=== PATIENT | male | born 1935 | race Caucasian/White ===

== ENCOUNTER 2017-02-10 03:32 | Emergency (ER) | payer MEDICAID, OTHER ==
[~2017-02-10] VITALS: Ht 175.3 cm; Wt 71.2 kg
[~2017-02-10 03:32] MED LIST: ADVAIR 100-501 EACH INH; BENAZEPRIL HCL10 MG PO; GLUCOPHAGE500 MG PO; PROAIR HFA8.5 GM INH; SIMVASTATIN40 MG PO; VICODIN 5-5001 EACH PO
[2017-02-10 04:09] VITALS: BP 170/97
[2017-02-10] MEDS ORDERED: DIPHENHYDRAMINE25 M1 ORAL (04:12)
[2017-02-10] MEDS ORDERED: PREDNISONE20 MG ORAL (04:12)
[2017-02-10 04:19] VITALS: BP 170/97
--- NOTE | 2017-02-10 06:01 | Emergency Room Report ---
History of Present Illness General Chief Complaint: Skin Rash/Abscess Source: Patient Present Illness HPI 81-year-old male presents ED for evaluation of rash. States he's had this rash for nearly one year now. Has been to multiple doctors and states that the rash is not gotten better. Has even been to [facility] and was prescribed cream which did not help. States the rash is very itchy, denies any pain. Denies any fevers or chills. No known food or drug allergies. States that it's been all over his body but is currently only on his face and neck. No other aggravating or relieving factors. Denies any other associated symptoms Allergies: Coded Allergies: No Known Allergies (Unverified , 02/10/17) Patient History Past Medical History: DM, HTN, COPD Past Surgical History: none Pertinent Family History: none Social History: Denies: alcohol use, drug use, smoking Immunizations: UTD Reviewed Nursing Documentation: PMH: Agreed, PSxH: Agreed Nursing Documentation-PMH Past Medical History: No History, Except For Hx Hypertension: Yes Hx COPD: Yes Hx Diabetes: Yes - borderline dm2 Review of Systems All Other Systems: negative except mentioned in HPI Physical Exam Vital Signs Date Time Temp Pulse Resp B/P Pulse Ox O2 Delivery O2 Flow Rate FiO2 02/10/17 03:42 97.5 108 16 192/97 90 Room Air Sp02 EP Interpretation: reviewed, normal General Appearance: no apparent distress, alert, GCS 15, non-toxic Head: normocephalic, atraumatic Eyes: bilateral eye PERRL, bilateral eye normal inspection ENT: normal ENT inspection Neck: normal inspection Respiratory: normal inspection Cardiovascular #1: normal inspection Gastrointestinal: normal inspection Rectal: deferred Genitourinary: no CVA tenderness Musculoskeletal: normal inspection Neurologic: alert, oriented x3, responsive, motor strength/tone normal, sensory intact, speech normal Psychiatric: normal inspection Skin: rash - erythematous patches on face. nonerythematous base Lymphatic: normal inspection Medical Decision Making Diagnostic Impression: Primary Impression: Rash and other nonspecific skin eruption ER Course Hospital Course 81-year-old male presents to ED with rash to face Differential diagnoses include: Cellulitis, dermatitis, insect bite, abscess Clinical course Patient placed on stretcher. After initial history, physical exam reveals an elderly male in no acute distress. On exam there are multiple macular circular patches to the face. Nonerythematous base. Smooth. Blanching. Diagnosis - rash stable and discharged to home with prescription for Prednisone, Benedryl. Instructed to followup with PMD. Instructed return to ED if symptoms recur or worsen Last Vital Signs Date Time Temp Pulse Resp B/P Pulse Ox O2 Delivery O2 Flow Rate FiO2 02/10/17 04:19 97.5 98 16 170/97 96 Room Air Status: improved Disposition: HOME, SELF-CARE Condition: Stable Scripts Diphenhydramine Hcl* (DIPHENHYDRAMINE HCL*) 25 Mg Capsule 25 MG ORAL Q6H Y for Itching, #30 CAP 0 Refills Prov: AMINA MAHAJAN M.D. 02/10/17 Prednisone* (PREDNISONE*) 20 Mg Tablet 40 MG ORAL DAILY, #10 TAB Prov: AMINA MAHAJAN M.D. 02/10/17 Referrals: [facility],REFERRING (PCP) Patient Instructions: AMINA Blunt M.D. Feb 10, 2017 06:01
== END 2017-02-10 04:20 | disposition home or self-care (01) ==
LOC: EMR 04:00
DX: R21 Rash and other nonspecific skin eruption (principal); I10 Essential (primary) hypertension; J44.9 Chronic obstructive pulmonary disease, unspecified; E11.9 Type 2 diabetes mellitus without complications
CPT/HCPCS: 99284

== ENCOUNTER 2017-12-02 11:31 | Emergency (ER) | payer MEDICARE, OTHER ==
[~2017-12-02] VITALS: Ht 175.3 cm; Wt 68.9 kg
[~2017-12-02 11:31] MED LIST changes: +DIPHENHYDRAMINE25 M1 ORAL; +PREDNISONE20 MG ORAL
[2017-12-02 11:40] VITALS: BP 131/88
--- NOTE | 2017-12-02 12:30 | Emergency Room Report ---
History of Present Illness General Chief Complaint: Abdominal Pain Source: Patient Present Illness HPI Patient states has a history of a right inguinal hernia. He states he's had this in the 80s. He states he has had a cough recently and has noticed some soreness in the area. He states it is most painful when he has a bowel movement. He denies pain at this time. He states he would like to get it "checked out." He denies fever or chills. He denies nausea or vomiting. He is having normal bowel movements daily. He denies dysuria or hematuria. He has no other complaints. Allergies: Coded Allergies: No Known Allergies (Unverified , 02/10/17) Patient History Past Medical History: see triage record, DM, HTN, COPD Social History: Reports: smoking, Denies: alcohol use, drug use Reviewed Nursing Documentation: PMH: Agreed, PSxH: Agreed Nursing Documentation-PMH Past Medical History: No History, Except For Hx Hypertension: Yes Hx COPD: Yes Hx Diabetes: Yes - borderline dm2 Review of Systems All Other Systems: negative except mentioned in HPI Physical Exam Vital Signs Date Time Temp Pulse Resp B/P (MAP) Pulse Ox O2 Delivery O2 Flow Rate FiO2 12/02/17 11:40 98.1 67 18 131/88 92 Room Air Sp02 EP Interpretation: reviewed, normal General Appearance: no apparent distress, alert, GCS 15, non-toxic Head: normocephalic, atraumatic Eyes: bilateral eye normal inspection, bilateral eye PERRL ENT: hearing grossly normal, normal pharynx, no angioedema, normal voice Neck: full range of motion, supple/symm/no masses Respiratory: chest non-tender, lungs clear, normal breath sounds, speaking full sentences Cardiovascular #1: regular rate, rhythm, no edema Gastrointestinal: normal bowel sounds, non tender, soft, non-distended, no guarding, no rebound, hernia - R. inguinal, easily reducible, non-tender. No erythema. Rectal: deferred Musculoskeletal: back normal, gait/station normal, normal range of motion, non- tender Neurologic: alert, oriented x3, responsive, motor strength/tone normal, sensory intact, speech normal Psychiatric: judgement/insight normal, memory normal, mood/affect normal, no suicidal/homicidal ideation Skin: normal color, no rash, warm/dry, well hydrated Medical Decision Making Diagnostic Impression: Primary Impression: Inguinal hernia ER Course This patient presents with a reducible inguinal hernia. The patient was concerned as it was hurting more often lately. I had offered the patient a CT of the abdomen and pelvis, however, he declined. He states that he underwent a CT of the chest with the [facility] within the last month. He also had a full blood work done at the NH. He states he just wanted me to evaluate it. The hernia is reducible and nontender. He has no vomiting and is having normal bowel movements. I do not feel that there is any emergency medical condition. It does not appear incarcerated or strangulated. It is a non-surgical abdomen. He 's had it for many years. I will put him on a bowel regimen to prevent constipation and having to bear down. He is instructed to followup with the NH. Laboratory Tests Test 12/02/17 12:20 Urine Color Pale yellow Urine Appearance Clear Urine pH 5 (4.5-8.0) Urine Specific [place] 1.010 (1.005-1.035) Urine Protein Negative (NEGATIVE) Urine Glucose (UA) Negative (NEGATIVE) Urine Ketones Negative (NEGATIVE) Urine Occult Blood Negative (NEGATIVE) Urine Nitrite Negative (NEGATIVE) Urine Bilirubin Negative (NEGATIVE) Urine Urobilinogen Normal MG/DL (0.0-1.0) Urine Leukocyte Esterase Negative (NEGATIVE) Last Vital Signs Date Time Temp Pulse Resp B/P (MAP) Pulse Ox O2 Delivery O2 Flow Rate FiO2 12/02/17 11:40 98.1 67 18 131/88 92 Room Air Status: improved Disposition: HOME, SELF-CARE Condition: Improved Scripts Polyethylene Glycol 3350* (MIRALAX*) 17 Gm Powd.pack 17 GM ORAL DAILY, #30 PACKET Prov: JUNI YA D.O. 12/02/17 Docusate Sodium* (COLACE*) 100 Mg Capsule 100 MG ORAL TWICE A DAY, #60 CAP Prov: JUNI YAOElayne 12/02/17 JUNI YA D.O. Dec 02, 2017 12:30
[2017-12-02 12:38] LABS: APPEARANCE,URINE CLEAR; BILIRUBIN, URINE NEGATIVE (NEGATIVE); COLOR,URINE PALE YELLOW; GLUCOSE, URINE (UA) NEGATIVE (NEGATIVE); KETONES,URINE NEGATIVE (NEGATIVE); LEUKOCYTE ESTERASE ,URINE NEGATIVE (NEGATIVE); NITRITE,URINE NEGATIVE (NEGATIVE); PH,URINE 5 (4.5-8.0); PROTEIN,URINE NEGATIVE (NEGATIVE); UROBILINOGEN,URINE NORMAL MG/DL (0.0-1.0)
[2017-12-02] MEDS ORDERED: COLACE100 MG ORAL ×2 (12:38→13:30)
[2017-12-02] MEDS ORDERED: MIRALAX17 G2 ORAL ×2 (12:38→13:30)
[2017-12-02 13:05] VITALS: BP 116/67
== END 2017-12-02 14:00 | disposition home or self-care (01) ==
LOC: EMR 13:15
DX: K40.90 Unilateral inguinal hernia, without obstruction or gangrene, not specified as recurrent (principal); I10 Essential (primary) hypertension; J44.9 Chronic obstructive pulmonary disease, unspecified
CPT/HCPCS: 81003; 99283

== ENCOUNTER 2019-03-13 16:00 | Inpatient (IN) | payer MEDICARE, OTHER ==
[~2019-03-13] VITALS: Ht 175.3 cm; Wt 68.9 kg
[~2019-03-13 16:00] MED LIST changes: +COLACE100 MG ORAL; +MIRALAX17 G2 ORAL
--- NOTE | 2019-03-13 16:00 | NUR ---
ED Nurse Note: Pt BIBA from home due to complaints of abdominal pain x 1 hour. Pt denies vomiting or diarrhea but is complaining of nausea. Pt is arting the pain an 8/10. Non radiating. No distention in the abdomen noted. Pt noted to have right sided inguinal hernia. Hx of COPD. Upon arrival to ED, noted to be sating at 88% on RA. Pt placed on O2 2lpm via nasal cannula and is now 90%. Pt is A + O x4. Ambulatory. Skin warm to touch.
[2019-03-13 16:02] VITALS: BP 161/92
--- NOTE | 2019-03-13 16:20 | NUR ---
ED Nurse Note: Blood has been collected and sent to lab.
--- NOTE | 2019-03-13 16:24 | Emergency Room Report ---
History of Present Illness General Chief Complaint: Abdominal Pain Source: Patient Present Illness HPI Patient presents with complaints of vomiting nausea abdominal discomfort and a hard mass in the right inguinal region patient has had previous hernia however he reports that the area has not become hard to touch He feels that something is blocked Denies any chest pain or shortness of breath denies any dysuria or frequency patient reports a small amount of bowel movement this morning And none since then Allergies: Coded Allergies: No Known Allergies (Unverified , 02/10/17) Patient History Past Medical History: see triage record Pertinent Family History: none Reviewed Nursing Documentation: PMH: Agreed; PSxH: Agreed Nursing Documentation-PMH Past Medical History: No History, Except For Hx Hypertension: Yes Hx COPD: Yes Hx Diabetes: Yes Review of Systems All Other Systems: negative except mentioned in HPI Physical Exam Vital Signs Date Time Temp Pulse Resp B/P (MAP) Pulse Ox O2 Delivery O2 Flow Rate FiO2 03/13/19 15:50 98.8 95 20 140/72 98 Room Air 03/13/19 16:02 2.0 90 Sp02 EP Interpretation: reviewed, normal General Appearance: mild distress - Nauseated vomiting Head: normocephalic, atraumatic Eyes: bilateral eye PERRL, bilateral eye EOMI ENT: normal pharynx Neck: supple, thyroid normal Respiratory: lungs clear, no retraction, no accessory muscle use Cardiovascular #1: regular rate, rhythm Gastrointestinal: soft, other - Right-sided inguinal hernia, palpable indicative of incarceration Genitourinary: other - As above Musculoskeletal: normal inspection, back normal Neurologic: alert, oriented x3, responsive Skin: other - As above Procedures Critical Care Time Critical Care Time 50 minutes for emergent findings multiple re-evaluations, contact with specialist multiple re-evaluations not including any procedural time Medical Decision Making Diagnostic Impression: Primary Impression: Incarcerated hernia Additional Impression: SBO (small bowel obstruction) ER Course With the history exam and presentation, multiple differentials considered, including but not limited to appendicitis, gastritis, cholecystitis, diverticulitis Given the patient's clinical history and examination there is significant concern for right-sided incarcerated hernia Surgery is contacted emergently house detective contacted for initiation of the operating room Patient was consented in the emergency room doctor Frederick also in the emergency room And patient admitted to the OR for emergency procedure Labs Test 03/13/19 16:10 03/13/19 16:35 White Blood Count 12.4 K/UL (4.8-10.8) Red Blood Count 4.86 M/UL (4.70-6.10) Hemoglobin 15.2 G/DL (14.2-18.0) Hematocrit 46.3 % (42.0-52.0) Mean Corpuscular Volume 95 FL (80-99) Mean Corpuscular Hemoglobin 31.4 PG (27.0-31.0) Mean Corpuscular Hemoglobin Concent 33.0 G/DL (32.0-36.0) Red Cell Distribution Width 13.0 % (11.6-14.8) Platelet Count 166 K/UL (150-450) Mean Platelet Volume 7.0 FL (6.5-10.1) Neutrophils (%) (Auto) 78.7 % (45.0-75.0) Lymphocytes (%) (Auto) 13.8 % (20.0-45.0) Monocytes (%) (Auto) 4.9 % (1.0-10.0) Eosinophils (%) (Auto) 1.9 % (0.0-3.0) Basophils (%) (Auto) 0.7 % (0.0-2.0) Sodium Level 137 MMOL/L (136-145) Potassium Level 4.1 MMOL/L (3.5-5.1) Chloride Level 101 MMOL/L (98-107) Carbon Dioxide Level 26 MMOL/L (21-32) Anion Gap 10 mmol/L (5-15) Blood Urea Nitrogen 18 mg/dL (7-18) Creatinine 1.5 MG/DL (0.55-1.30) Estimat Glomerular Filtration Rate mL/min (>60) Glucose Level 214 MG/DL (74-106) Calcium Level 9.0 MG/DL (8.5-10.1) Total Bilirubin 0.6 MG/DL (0.2-1.0) Aspartate Amino Transf (AST/SGOT) 23 U/L (15-37) Alanine Aminotransferase (ALT/SGPT) 22 U/L (12-78) Alkaline Phosphatase 73 U/L (46-116) Total Creatine Kinase 108 U/L (26-308) Creatine Kinase MB 1.5 NG/ML (0.0-3.6) Creatine Kinase MB Relative Index 1.3 Troponin I 0.000 ng/mL (0.000-0.056) Pro-B-Type Natriuretic Peptide 46 pg/mL (0-125) Total Protein 7.7 G/DL (6.4-8.2) Albumin 3.9 G/DL (3.4-5.0) Globulin 3.8 g/dL Albumin/Globulin Ratio 1.0 (1.0-2.7) Lipase 89 U/L (73-393) Prothrombin Time 10.4 SEC (9.30-11.50) Prothromb Time International Ratio 1.0 (0.9-1.1) Activated Partial Thromboplast Time 24 SEC (23-33) Rhythm Strip Diag. Results EP Interpretation: yes Rate: 70 Rhythm: NSR, no PVC's, no ectopy Chest X-Ray Diagnostic Results Chest X-Ray Diagnostic Results : Chest X-Ray Ordered: Yes # of Views/Limited/Complete: 1 View Indication: Other - Preop EP Interpretation: Yes Interpretation: no consolidation, no effusion, no pneumothorax Impression: No acute disease - COPD Electronically Signed by: Maria M Duke DO CT/MRI/US Diagnostic Results CT/MRI/US Diagnostic Results : Impression CT abdomen pelvis: Small bowel obstruction secondary to incarcerated right inguinal hernia Last Vital Signs Date Time Temp Pulse Resp B/P (MAP) Pulse Ox O2 Delivery O2 Flow Rate FiO2 03/13/19 16:02 98.5 103 25 161/92 90 Nasal Cannula 2.0 03/13/19 16:02 90 Status: unchanged Disposition: ADMITTED INPATIENT Condition: Critical Referrals: NON PHYSICIAN (PCP) Maria M Duke DO Mar 13, 2019 16:24
[2019-03-13 16:32] LABS: BASOPHILS % (AUTO) 0.7 % (0.0-2.0); EOSINOPHILS % (AUTO) 1.9 % (0.0-3.0); HEMATOCRIT 46.3 % (42.0-52.0); HEMOGLOBIN 15.2 G/DL (14.2-18.0); LYMPHOCYTES % (AUTO) 13.8 % (20.0-45.0); MEAN CORPUSCULAR VOLUME 95 FL (80-99); MONOCYTES % (AUTO) 4.9 % (1.0-10.0); NEUTROPHILS % (AUTO) 78.7 % (45.0-75.0); PLATELET COUNT 166 K/UL (150-450); RED BLOOD COUNT 4.86 M/UL (4.70-6.10); WHITE BLOOD COUNT 12.4 K/UL (4.8-10.8)
[2019-03-13 16:43] LABS: ANION GAP 10 mmol/L (5-15); BLOOD UREA NITROGEN 18 mg/dL (7-18); CARBON DIOXIDE 26 MMOL/L (21-32); CHLORIDE 101 MMOL/L (98-107); CREATININE 1.5 MG/DL (0.55-1.30); POTASSIUM 4.1 MMOL/L (3.5-5.1); SODIUM 137 MMOL/L (136-145)
[2019-03-13] MEDS ORDERED: Morphine Sulfate 4mg/ml Inj (IV USE ONLY) IVP ONE (16:45)
--- NOTE | 2019-03-13 16:53 | NUR ---
ED Nurse Note: Pt went down to CT.
[2019-03-13 16:58] LABS: ALANINE AMINOTRANSFERASE 22 U/L (12-78); ALBUMIN 3.9 G/DL (3.4-5.0); ALKALINE PHOSPHATASE 73 U/L (46-116); ASPARTATE AMINO TRANSFERASE 23 U/L (15-37); BILIRUBIN,TOTAL 0.6 MG/DL (0.2-1.0); CKMB 1.5 NG/ML (0.0-3.6); CREATINE KINASE 108 U/L (26-308)
--- NOTE | 2019-03-13 17:04 | Pre-Procedure Note/Attestation ---
Pre-Procedure Note/Attestation Complete Prior to Procedure Planned Procedure: right Procedure Narrative: Right inguinal herniorrhaphy and release of incarceration Indications for Procedure Pre-Operative Diagnosis: Incarcerated Right Inguinal Hernia Attestation I attest that I discussed the nature of the procedure; its benefits; risks and complications; and alternatives (and the risks and benefits of such alternatives ), prior to the procedure, with the patient (or the patient's legal community service representative). I attest that, if there was a reasonable possibility of needing a blood transfusion, the patient (or the patient's legal community service representative) was given the [facility] standardized written summary, pursuant to the Alexy Martine Blood Safety Act ([place] Health and Safety Code # 1645, as amended). I attest that I re-evaluated the patient just prior to the surgery and that there has been no change in the patient's H&P, except as documented below: Cathi Frederick MD Mar 13, 2019 17:04
--- NOTE | 2019-03-13 17:11 | NUR ---
ED Nurse Note: Pt back from CT
[2019-03-13] MEDS ORDERED: Zemuron 50mg/5ml Inj IV ONE (17:24)
--- NOTE | 2019-03-13 17:26 | NUR ---
ED Nurse Note: Pt signed surgery consent and belongings list created. Pt has been dressed down.
[2019-03-13] MEDS ORDERED: fentaNYL 100 mcg/2 mL IV ONE (17:33)
[2019-03-13] MEDS ORDERED: Midazolam 2mg/2ml Inj ONE (17:33)
[2019-03-13] MEDS ORDERED: LR 1000ml 1,000 ML IVLG SCH (17:38)
--- NOTE | 2019-03-13 17:38 | NUR ---
ED Nurse Note: Pt transferred to OR unit. No acute distress noted. Left ER w/ all belongings. Signed Consent and belongings list given to OR transport staff.
--- NOTE | 2019-03-13 17:43 | Anethesia Preoperative Eval ---
Anesthesia Pre-op PMH/ROS General Date of Evaluation: Mar 13, 2019 Anesthesiologist: Lisa ASA Score: ASA 3 Mallampati Score Class I : Soft palate, uvula, fauces, pillars visible Class II: Soft palate, uvula, fauces visible Class III: Soft palate, base of uvula visible Class IV: Only hard plate visible Mallampati Classification: Class II Surgeon: Chas Diagnosis: Inguinal Hernia Surgical Procedure: Repair Inguinal Hernia Anesthesia History: none Family History: no anesthesia problems Allergies: Coded Allergies: No Known Allergies (Unverified , 02/10/17) Medications: see eMAR Patient NPO?: Yes Past Medical History Cardiovascular: Reports: HTN Pulmonary: Reports: COPD Endocrine: Reports: DM Anesthesia Pre-op Phys. Exam Physician Exam Last Vital Signs Date Time Temp Pulse Resp B/P (MAP) Pulse Ox O2 Delivery O2 Flow Rate FiO2 03/13/19 17:10 98.5 03/13/19 16:02 103 25 161/92 90 Nasal Cannula 2.0 03/13/19 16:02 90 Anesthesia Pre-op A/P Labs Hematology Test 03/13/19 16:10 White Blood Count 12.4 K/UL (4.8-10.8) H Red Blood Count 4.86 M/UL (4.70-6.10) Hemoglobin 15.2 G/DL (14.2-18.0) Hematocrit 46.3 % (42.0-52.0) Mean Corpuscular Volume 95 FL (80-99) Mean Corpuscular Hemoglobin 31.4 PG (27.0-31.0) H Mean Corpuscular Hemoglobin Concent 33.0 G/DL (32.0-36.0) Red Cell Distribution Width 13.0 % (11.6-14.8) Platelet Count 166 K/UL (150-450) Mean Platelet Volume 7.0 FL (6.5-10.1) Neutrophils (%) (Auto) 78.7 % (45.0-75.0) H Lymphocytes (%) (Auto) 13.8 % (20.0-45.0) L Monocytes (%) (Auto) 4.9 % (1.0-10.0) Eosinophils (%) (Auto) 1.9 % (0.0-3.0) Basophils (%) (Auto) 0.7 % (0.0-2.0) Coagulation Test 03/13/19 16:35 Prothrombin Time 10.4 SEC (9.30-11.50) Prothromb Time International Ratio 1.0 (0.9-1.1) Activated Partial Thromboplast Time 24 SEC (23-33) Chemistry Test 03/13/19 16:10 Sodium Level 137 MMOL/L (136-145) Potassium Level 4.1 MMOL/L (3.5-5.1) Chloride Level 101 MMOL/L (98-107) Carbon Dioxide Level 26 MMOL/L (21-32) Anion Gap 10 mmol/L (5-15) Blood Urea Nitrogen 18 mg/dL (7-18) Creatinine 1.5 MG/DL (0.55-1.30) H Estimat Glomerular Filtration Rate mL/min (>60) Glucose Level 214 MG/DL (74-106) H Calcium Level 9.0 MG/DL (8.5-10.1) Total Bilirubin 0.6 MG/DL (0.2-1.0) Aspartate Amino Transf (AST/SGOT) 23 U/L (15-37) Alanine Aminotransferase (ALT/SGPT) 22 U/L (12-78) Alkaline Phosphatase 73 U/L (46-116) Total Creatine Kinase 108 U/L (26-308) Creatine Kinase MB 1.5 NG/ML (0.0-3.6) Creatine Kinase MB Relative Index 1.3 Troponin I 0.000 ng/mL (0.000-0.056) Pro-B-Type Natriuretic Peptide 46 pg/mL (0-125) Total Protein 7.7 G/DL (6.4-8.2) Albumin 3.9 G/DL (3.4-5.0) Globulin 3.8 g/dL Albumin/Globulin Ratio 1.0 (1.0-2.7) Lipase 89 U/L (73-393) Rufino Gonzalez MD Mar 13, 2019 17:43
[2019-03-13] MEDS ORDERED: LORazepam Inj 2mg/ml 1ml IV PRN (17:45)
[2019-03-13] MEDS ORDERED: DiphenhydrAMINE 50mg/ml Inj IVP PRN (17:45)
[2019-03-13] MEDS ORDERED: fentaNYL 100 mcg/2 mL IV PRN (17:45)
[2019-03-13] MEDS ORDERED: Labetalol 5mg/ml 20ml vial IV PRN (17:45)
[2019-03-13] MEDS ORDERED: Metoclopramide 10mg/2ml Inj IVP PRN (17:45)
[2019-03-13] MEDS ORDERED: Midazolam 2mg/2ml Inj IVP PRN (17:45)
[2019-03-13] MEDS ORDERED: HYDROcodone/Acetamin 7.5/325 tab ORAL PRN (17:45)
[2019-03-13] MEDS ORDERED: Ketorolac 30mg Inj IV PRN ×2 (17:45)
[2019-03-13] MEDS ORDERED: oxyCODONE HCL/Acetaminophen 5/325mg ORAL PRN (17:45)
[2019-03-13] MEDS ORDERED: Atropine Sulfate 0.4mg/ml inj IVP PRN (17:45)
[2019-03-13] MEDS ORDERED: Propofol 200mg/20ml IV ONE (17:45)
[2019-03-13] MEDS ORDERED: Sodium Chloride 10ml vial INJ ONE (17:45)
[2019-03-13] MEDS ORDERED: Hydromorphone 0.5mg/0.5ml inj IVP PRN (17:45)
[2019-03-13] MEDS ORDERED: Lidocaine 1% MPF 10mg/ml 5ml ONE (17:45)
[2019-03-13] MEDS ORDERED: Meperidine 50mg/ml Inj(FOR RIGORS ONLY) IVP PRN (17:45)
[2019-03-13] MEDS ORDERED: HYDROcodone/Acetamin 5/325 tab ORAL PRN (17:45)
[2019-03-13] MEDS ORDERED: Bacitracin 50000 Units Vial ONE (17:47)
[2019-03-13] MEDS ORDERED: Bupivacaine 0.25% Inj 30ml INJ ONE (17:47)
[2019-03-13] MEDS ORDERED: Bupivacaine w/Epi 0.25% 30ml Vial INJ ONE (17:47)
--- NOTE | 2019-03-13 18:00 | Pre-op HX & Phy Repo 2 SIG ---
DATE OF ADMISSION: 03/13/2019 REQUESTING PHYSICIAN: Maria M Duke D.O. from the emergency room. REASON FOR CONSULTATION: Pain and swelling of the right groin. HISTORY OF PRESENT ILLNESS: This is an 83-year-old male, who presented to emergency room complaining of pain in the right groin for about two to three hours. He stated that he has had right inguinal hernia for about 20 years, but it has been reducible, but a few hours ago, the hernia has protruded. It has been irreducible, dense, tender with pain, and he has been nauseated. He had a bowel movement prior to the start of the pain. He denies any fever, dysuria, or frequency. PAST MEDICAL HISTORY: He denies allergies, cardiac or renal diseases. He has a history of COPD, diabetes, and hypertension. PAST SURGICAL HISTORY: None. MEDICATIONS: Please see the medicine reconciliation form. SOCIAL HISTORY: The patient is an 83-year-old male, single without children, retired. He claims that he quit smoking 10 years ago and quit drinking a few months ago. REVIEW OF SYSTEMS: He complains of once and two times nocturia and shortness of breath and exertion. PHYSICAL EXAMINATION: GENERAL: The patient appeared to be a well-developed, well-nourished, 83-year-old male, lying on the gurney complaining of pain in the right groin. HEAD: Normocephalic and atraumatic. Eyes, pupils are equal, round, and reactive to light. Mouth is clear. He has upper denture. NECK: There is no palpable thyromegaly or adenopathy. CHEST: He has a barrel chest, but the chest is clear in auscultation and percussion. HEART: Heart sounds are distant, but there is no gallop or murmur. S1 and S2 are within normal limits. ABDOMEN: Soft, flat, and nontender. There is no palpable organomegaly. Bowel sounds are present. GENITALIA: He has a normal uncircumcised penis. His testicles are normal and atrophic. He has irreducible and very tender right inguinal hernia, which extends to the upper part of the spermatic cord. EXTREMITIES: Within normal limits. LABORATORY AND DIAGNOSTIC DATA: CBC has shown a WBC of 12,400 with mild left shift. Chemistry has shown blood glucose of 214 with creatinine of 1.5 and BUN of 18. ASSESSMENT: Strangulated right inguinal hernia. PLAN: The patient requires an emergency right inguinal herniorrhaphy with the release of the strangulation. The risk and benefits have been explained to him. He understood and granted consent. Cathi Frederick M.D. DR: Elisa JOB#: [id number] CC:
--- NOTE | 2019-03-13 18:08 | General Surgery Progress Note ---
General Surgery-Progress Note Subjective Symptoms: improved Additional Comments hernia reduced spontaneously patient refuses surgery Objective Last 24 Hour Vital Signs Date Time Temp Pulse Resp B/P (MAP) Pulse Ox O2 Delivery O2 Flow Rate FiO2 03/13/19 17:39 98.1 64 19 107/69 93 Nasal Cannula 2.0 03/13/19 17:10 98.5 03/13/19 16:02 98.5 103 25 161/92 90 Nasal Cannula 2.0 03/13/19 16:02 103 25 Nasal Cannula 2.0 90 03/13/19 15:50 98.8 95 20 140/72 98 Room Air Abdomen: other - right inguinal hernia has reduced Laboratory Tests Test 03/13/19 16:10 03/13/19 16:35 White Blood Count 12.4 K/UL (4.8-10.8) H Red Blood Count 4.86 M/UL (4.70-6.10) Hemoglobin 15.2 G/DL (14.2-18.0) Hematocrit 46.3 % (42.0-52.0) Mean Corpuscular Volume 95 FL (80-99) Mean Corpuscular Hemoglobin 31.4 PG (27.0-31.0) H Mean Corpuscular Hemoglobin Concent 33.0 G/DL (32.0-36.0) Red Cell Distribution Width 13.0 % (11.6-14.8) Platelet Count 166 K/UL (150-450) Mean Platelet Volume 7.0 FL (6.5-10.1) Neutrophils (%) (Auto) 78.7 % (45.0-75.0) H Lymphocytes (%) (Auto) 13.8 % (20.0-45.0) L Monocytes (%) (Auto) 4.9 % (1.0-10.0) Eosinophils (%) (Auto) 1.9 % (0.0-3.0) Basophils (%) (Auto) 0.7 % (0.0-2.0) Sodium Level 137 MMOL/L (136-145) Potassium Level 4.1 MMOL/L (3.5-5.1) Chloride Level 101 MMOL/L (98-107) Carbon Dioxide Level 26 MMOL/L (21-32) Anion Gap 10 mmol/L (5-15) Blood Urea Nitrogen 18 mg/dL (7-18) Creatinine 1.5 MG/DL (0.55-1.30) H Estimat Glomerular Filtration Rate mL/min (>60) Glucose Level 214 MG/DL (74-106) H Calcium Level 9.0 MG/DL (8.5-10.1) Total Bilirubin 0.6 MG/DL (0.2-1.0) Aspartate Amino Transf (AST/SGOT) 23 U/L (15-37) Alanine Aminotransferase (ALT/SGPT) 22 U/L (12-78) Alkaline Phosphatase 73 U/L (46-116) Total Creatine Kinase 108 U/L (26-308) Creatine Kinase MB 1.5 NG/ML (0.0-3.6) Creatine Kinase MB Relative Index 1.3 Troponin I 0.000 ng/mL (0.000-0.056) Pro-B-Type Natriuretic Peptide 46 pg/mL (0-125) Total Protein 7.7 G/DL (6.4-8.2) Albumin 3.9 G/DL (3.4-5.0) Globulin 3.8 g/dL Albumin/Globulin Ratio 1.0 (1.0-2.7) Lipase 89 U/L (73-393) Prothrombin Time 10.4 SEC (9.30-11.50) Prothromb Time International Ratio 1.0 (0.9-1.1) Activated Partial Thromboplast Time 24 SEC (23-33) Assessment Additional Comments S/P incarcerated right inguinal hernia Plan Additional Comments patient refuses surgery. he can be discharged home Cathi Frederick MD Mar 13, 2019 18:08
--- NOTE | 2019-03-13 18:13 | NUR ---
ED Nurse Note: Tried giving report, RN unavailable. Will try again.
--- NOTE | 2019-03-13 18:24 | NUR ---
ED Nurse Note: Gave telephone report to BRANDEE Roland.
--- NOTE | 2019-03-13 18:29 | NUR ---
ED Nurse Note: Pt was transferred to the OR unit but upon arrival, pt denied having surgery. Pt was transported back to ER, gave telephone report to BRANDEE Roland from [facility] unit and pt was transferred. No acute distress noted. Left ER w/ all belongings.
[2019-03-13 18:51] VITALS: BP 129/98
--- NOTE | 2019-03-13 18:51 | NUR ---
NURSE NOTES: Report received from Cinthia from ED, patient transferred up via robert, NADIRA, no distress noted, patient belongings reviewed, patient has over $700 [place] and requests that he hold on to it, patient refuses to use the safe, bed is locked and in lowest position, call light within reach, will continue to monitor.
--- NOTE | 2019-03-13 19:33 | NUR ---
HAND-OFF: Report given to Eagle IRVIN.
[2019-03-13 20:00] VITALS: BP 122/67
--- NOTE | 2019-03-13 20:30 | NUR ---
NURSE NOTES: Patient noted request AMA. Patient is awake, alert and verbally responsive. No complaint of pain at the moment. Patient is aware regarding his condition. Primary MD made aware. Charge nurse made aware. All belongings accounted for. Arm band removed and IV site removed.
--- NOTE | 2019-03-14 08:39 | Diagnostic Imaging Report ---
Indication: Abdominal pain Technique: Spiral acquisitions obtained through the abdomen and pelvis. No oral contrast utilized, per emergency room physician request No IV contrast utilized, per referring physician request.. Multiplanar reconstructions were generated. Total dose length product 544.41 mGycm. CTDIvol(s) 11.42 mGy. Dose reduction achieved using automated exposure control Comparison: None Findings: There is a direct right inguinal hernia. This contains 2 separate segments of small bowel. This results in obstruction of both segments, as small bowel loops entering and exiting the proximal segment are dilated and fluid filled, whereas the small bowel exiting the distal segment is collapsed. There is minimal infiltration of the mesenteric fat within the hernia sac. No small bowel bowel wall thickening. The corner of the anterior bladder is also herniated into the defect. The appendix is normal. There is a moderate amount of retained fecal material. There is colonic diverticulosis. No evidence of diverticulitis. No free or loculated intraperitoneal gas or fluid is evident. The distal esophagus, stomach, duodenum are unremarkable. The lack of IV contrast limits assessment of the solid organs. The liver, gallbladder, bile ducts, pancreas, spleen, adrenals are unremarkable. The kidneys demonstrate bilateral cysts. The prostate is enlarged. Lung bases demonstrate hyperinflation and bullous changes. The bones demonstrate degenerative spondylosis changes. Impression: Direct right inguinal hernia containing 2 separate loops of small bowel, appearing to obstruct mostly entering loops and resulting in small bowel obstruction. The hernia also contains a corner of the bladder Minimal infiltration of the mesenteric fat within the hernia sac; could indicate a component of strangulation. This is doubtful Evidence of constipation Colonic diverticulosis. No evidence of diverticulitis Prostatomegaly Pulmonary hyperinflation and bullous changes Other findings as noted, including degenerative spondylosis, bilateral renal cysts This agrees with the preliminary interpretation provided overnight by [employer] teleradiology service. The CT scanner at [facility] is accredited by the [employer] and the scans are performed using protocols designed to limit radiation exposure to as low as reasonably achievable to attain images of sufficient resolution adequate for diagnostic evaluation.
--- NOTE | 2019-03-14 10:24 | Diagnostic Imaging Report ---
Indication: Chest pain Technique: One view of the chest Comparison: For 19/01/2010 Findings: There are bullous changes of the upper lobes, particularly on the right. Lungs and pleural spaces are otherwise clear. The heart size is normal. There are severe degenerative changes of the left shoulder. Impression: No acute process Evidence of bullous COPD Other findings as noted
--- NOTE | 2019-03-14 19:57 | Cardiology Report ---
APPROVED REPORT EKG Measurement Heart [id number] Normal sinus rhythm with sinus arrhythmia Left axis deviation Right bundle branch block Septal infarct, age undetermined Abnormal ECG
--- NOTE | 2019-03-15 12:57 | Discharge Summary ---
Discharge Summary Discharge Summary _ DATE OF ADMISSION: 03/13/2019 DATE OF DISCHARGE: 03/13/2019 Patient left AGAINST MEDICAL ADVICE REASON FOR ADMISSION: 83 years old male with past medical history of COPD, diabetes mellitus, hypertension, presented to emergency room complaining of the right groin pain for 2-3 hours. Patient reported that he had a right inguinal hernia for about 20 years, but it was reducible. Few hours ago the hernia protruded and appeared to be irreducible. Patient reported to be in pain. Patient was nauseated. Patient had bowel movement prior. He denied fever, dysuria, and frequency. Upon evaluation noted that right inguinal hernia was irreducible and very tender, extending to the upper part of the spermatic cord. Laboratory workup revealed leukocytosis WBC 12.4 with mild left shift. Blood glucose 214. Creatinine 1.5, BUN 18. Chest x-ray revealed no acute process, but showed evidence of bullous COPD. CT of the abdomen and pelvis revealed direct right inguinal hernia, containing 2 separate loops of small bowel , appear to obstruct mostly entering loops and resulting in small bowel obstruction. General surgery consulted, who seen and evaluated patient. Patient required emergency right inguinal herniorrhaphy with release of the strangulation as per surgeon . Patient signed consent for surgery. CONSULTANTS: surgery [facility] COURSE: Patient admitted. Patient was kept n.p.o. and started on the IV fluids. Patient required emergency right inguinal herniorrhaphy with release of the strangulation. Pain management was addressed. Prior to surgery, hernia reduced spontaneously, and patient subsequently refused surgery. Surgeon cleared patient for discharge. Patient decline to wait for the primary care provider and decided to leave AGAINST MEDICAL ADVICE. Pain was resolved, no further nausea The risks and consequences of signing AGAINST MEDICAL ADVICE were discussed with patient in detail. Patient verbalized understanding, nevertheless signed AMA form and left.. FINAL DIAGNOSES: Status post incarcerated right inguinal hernia Small bowel obstruction I have been assigned to dictate discharge summary for this account. I was not involved in the patient's management. Delfina Hansen NP Mar 15, 2019 12:57
== END 2019-03-13 20:30 | disposition left against medical advice (07) | DRG 395 ==
LOC: EDBD 16:00 → EMR 16:13 → EDBEDREQ 16:17 → SUR 17:05 → EDBEDREQ 17:18 → 4E 18:11
DX: K40.30 Unilateral inguinal hernia, with obstruction, without gangrene, not specified as recurrent (principal); J44.9 Chronic obstructive pulmonary disease, unspecified; I10 Essential (primary) hypertension; E11.9 Type 2 diabetes mellitus without complications; Z87.891 Personal history of nicotine dependence; Z53.29 Procedure and treatment not carried out because of patient's decision for other reasons
CPT/HCPCS: 36415; 71045; 74176; 80053; 82550; 82553; 83690; 83880; 84484; 85025; 85610; 85730; 86850; 86900; 86901; 93005; 96374; 96375; 99291; J2250; J2405

== ENCOUNTER 2019-03-15 06:36 | Inpatient (IN) | payer MEDICARE ==
[2019-03-15] VITALS (10 sets, daily range): BP systolic 95–123; BP diastolic 62–82
[~2019-03-15] VITALS: Ht 172.7 cm; Wt 72.1 kg
[2019-03-15] MEDS ORDERED: ASPIR-LOW81 MG ORAL (06:56)
[2019-03-15] MEDS ORDERED: ADVAIR 250-501 EACH INH (06:56)
[2019-03-15] MEDS ORDERED: SPIRIVA18 MCG INH (06:56)
[2019-03-15] MEDS ORDERED: LISINOPRIL5 MG ORAL (06:56)
--- NOTE | 2019-03-15 07:00 | NUR ---
ED Nurse Note: RECIEVED PT FROM HOME, HERE WITH C/O HAVING CONSTIPATION FOR PAST 5 DAYS, PT WAS ADMITTED TO HOSPITAL FOR HERNIA REPAIR SURGERY AND LEFT AMA 3 DAYS AGO, PT STATES HE WAS AFRAID, PT DENIES CP, SOB, FEVERS, DIARRHEA, OR ANY OTHER COMPLAINTS OR DISCOMFORTS, PT GOWNED AND BEING SEEN BY MD. PT CURRENTLY HAS NO PAIN.
--- NOTE | 2019-03-15 07:22 | Emergency Room Report ---
History of Present Illness General Chief Complaint: Pain Source: Patient Present Illness HPI This patient had presented here to the emergency department 2 days ago with right inguinal pain and vomiting. He was found to have an incarcerated inguinal hernia. He was admitted here to [facility] and then refused to undergo surgery secondary to fear of the surgical procedure. Also, his symptoms improved and the small bowel obstruction had resolved. The patient refused surgery and was discharged. He presents today stating that he has changed his mind and he is ready to undergo the right inguinal hernia repair. He denies nausea or vomiting. However, he has had no bowel movement since being discharged from the emergency department. He has minimal pain in the right inguinal region although there is still a large bulge there. He did have cereal this morning around 6 AM. He denies fever or chills. He has no other complaints. Allergies: Coded Allergies: No Known Allergies (Unverified , 02/10/17) Patient History Past Medical History: see triage record, DM, HTN, COPD, GERD, other - HLP Social History: Denies: smoking - Quit tobacco 9 years ago., alcohol use - Hx of ETOH use, quit 2 months ago, drug use Reviewed Nursing Documentation: PMH: Agreed; PSxH: Agreed Nursing Documentation-PMH Past Medical History: No History, Except For Hx Hypertension: Yes Hx COPD: Yes Hx Diabetes: Yes Review of Systems All Other Systems: negative except mentioned in HPI Physical Exam Vital Signs Date Time Temp Pulse Resp B/P (MAP) Pulse Ox O2 Delivery O2 Flow Rate FiO2 03/15/19 06:38 94 12 152/84 91 Room Air Sp02 EP Interpretation: reviewed, normal General Appearance: no apparent distress, alert, GCS 15, non-toxic Head: normocephalic, atraumatic Eyes: bilateral eye normal inspection, bilateral eye PERRL ENT: hearing grossly normal, normal pharynx, no angioedema, normal voice Neck: full range of motion, supple/symm/no masses Respiratory: chest non-tender, lungs clear, normal breath sounds, no respiratory distress, no retraction, no accessory muscle use, speaking full sentences Cardiovascular #1: regular rate, rhythm, no edema Gastrointestinal: normal bowel sounds, soft, non-distended, no guarding, no rebound, tenderness - TTP in the R. inguinal with palpable mass that is non- reducible. Rectal: deferred Musculoskeletal: back normal, gait/station normal, normal range of motion, non- tender Neurologic: alert, oriented x3, responsive, motor strength/tone normal, sensory intact, speech normal Psychiatric: judgement/insight normal, memory normal, mood/affect normal, no suicidal/homicidal ideation Skin: normal color, no rash, warm/dry, well hydrated Medical Decision Making Diagnostic Impression: Primary Impression: Incarcerated right inguinal hernia ER Course This patient has an incarcerated right inguinal hernia. This identified on physical exam. I'm unable to reduce this hernia. The patient otherwise appears well. I reviewed the CT from a day and a half ago and the patient had an incarcerated inguinal hernia with a small bowel instruction at that time. I did not feel that repeating the CT with had any further information. I discussed this case with the on-call surgeon Dr. Frederick and he will do surgery on this patient this afternoon around 4:56 PM. The patient will need to be nothing by mouth today throughout the day. The patient is admitted to the medical surgical floor for surgical reduction of his right inguinal hernia. Laboratory Tests Test 03/15/19 07:15 03/15/19 07:30 White Blood Count 8.4 K/UL (4.8-10.8) Red Blood Count 4.73 M/UL (4.70-6.10) Hemoglobin 15.3 G/DL (14.2-18.0) Hematocrit 45.5 % (42.0-52.0) Mean Corpuscular Volume 96 FL (80-99) Mean Corpuscular Hemoglobin 32.2 PG (27.0-31.0) H Mean Corpuscular Hemoglobin Concent 33.5 G/DL (32.0-36.0) Red Cell Distribution Width 13.1 % (11.6-14.8) Platelet Count 166 K/UL (150-450) Mean Platelet Volume 8.9 FL (6.5-10.1) Neutrophils (%) (Auto) 65.9 % (45.0-75.0) Lymphocytes (%) (Auto) 23.8 % (20.0-45.0) Monocytes (%) (Auto) 7.2 % (1.0-10.0) Eosinophils (%) (Auto) 2.3 % (0.0-3.0) Basophils (%) (Auto) 0.9 % (0.0-2.0) Prothrombin Time 10.4 SEC (9.30-11.50) Prothrombin Time INR 1.0 (0.9-1.1) PTT 27 SEC (23-33) Sodium Level 139 MMOL/L (136-145) Potassium Level 4.2 MMOL/L (3.5-5.1) Chloride Level 101 MMOL/L (98-107) Carbon Dioxide Level 29 MMOL/L (21-32) Anion Gap 9 mmol/L (5-15) Blood Urea Nitrogen 17 mg/dL (7-18) Creatinine 1.3 MG/DL (0.55-1.30) Estimate Glomerular Filtration Rate mL/min (>60) Glucose Level 128 MG/DL (74-106) H Calcium Level 8.8 MG/DL (8.5-10.1) Total Bilirubin 0.7 MG/DL (0.2-1.0) Aspartate Amino Transferase (AST) 21 U/L (15-37) Alanine Aminotransferase (ALT) 23 U/L (12-78) Alkaline Phosphatase 72 U/L (46-116) Total Protein 7.4 G/DL (6.4-8.2) Albumin 3.7 G/DL (3.4-5.0) Globulin 3.7 g/dL Albumin/Globulin Ratio 1.0 (1.0-2.7) Lactic Acid Level 0.90 mmol/L (0.4-2.0) Laboratory Tests Test 03/15/19 07:15 03/15/19 07:30 White Blood Count 8.4 K/UL (4.8-10.8) Red Blood Count 4.73 M/UL (4.70-6.10) Hemoglobin 15.3 G/DL (14.2-18.0) Hematocrit 45.5 % (42.0-52.0) Mean Corpuscular Volume 96 FL (80-99) Mean Corpuscular Hemoglobin 32.2 PG (27.0-31.0) H Mean Corpuscular Hemoglobin Concent 33.5 G/DL (32.0-36.0) Red Cell Distribution Width 13.1 % (11.6-14.8) Platelet Count 166 K/UL (150-450) Mean Platelet Volume 8.9 FL (6.5-10.1) Neutrophils (%) (Auto) 65.9 % (45.0-75.0) Lymphocytes (%) (Auto) 23.8 % (20.0-45.0) Monocytes (%) (Auto) 7.2 % (1.0-10.0) Eosinophils (%) (Auto) 2.3 % (0.0-3.0) Basophils (%) (Auto) 0.9 % (0.0-2.0) Prothrombin Time Pending Prothrombin Time INR Pending PTT Pending Sodium Level Pending Potassium Level Pending Chloride Level Pending Carbon Dioxide Level Pending Blood Urea Nitrogen Pending Creatinine Pending Estimate Glomerular Filtration Rate Pending Glucose Level Pending Calcium Level Pending Total Bilirubin Pending Aspartate Amino Transferase (AST) Pending Alanine Aminotransferase (ALT) Pending Alkaline Phosphatase Pending Total Protein Pending Albumin Pending Globulin Pending Lactic Acid Level Pending Last Vital Signs Date Time Temp Pulse Resp B/P (MAP) Pulse Ox O2 Delivery O2 Flow Rate FiO2 03/15/19 06:38 94 12 152/84 91 Room Air Disposition: ADMITTED INPATIENT Condition: Serious Sana Bender DO Mar 15, 2019 07:22
[2019-03-15 07:31] LABS: BASOPHILS % (AUTO) 0.9 % (0.0-2.0); EOSINOPHILS % (AUTO) 2.3 % (0.0-3.0); HEMATOCRIT 45.5 % (42.0-52.0); HEMOGLOBIN 15.3 G/DL (14.2-18.0); LYMPHOCYTES % (AUTO) 23.8 % (20.0-45.0); MEAN CORPUSCULAR VOLUME 96 FL (80-99); MONOCYTES % (AUTO) 7.2 % (1.0-10.0); NEUTROPHILS % (AUTO) 65.9 % (45.0-75.0); PLATELET COUNT 166 K/UL (150-450); RED BLOOD COUNT 4.73 M/UL (4.70-6.10); RED CELL DISTRIBUTION WIDTH 13.1 % (11.6-14.8); WHITE BLOOD COUNT 8.4 K/UL (4.8-10.8)
[2019-03-15 07:44] LABS: ANION GAP 9 mmol/L (5-15); BLOOD UREA NITROGEN 17 mg/dL (7-18); CALCIUM 8.8 MG/DL (8.5-10.1); CARBON DIOXIDE 29 MMOL/L (21-32); CHLORIDE 101 MMOL/L (98-107); CREATININE 1.3 MG/DL (0.55-1.30); POTASSIUM 4.2 MMOL/L (3.5-5.1); SODIUM 139 MMOL/L (136-145)
[2019-03-15 07:48] LABS: ALANINE AMINOTRANSFERASE 23 U/L (12-78); ALBUMIN 3.7 G/DL (3.4-5.0); ALKALINE PHOSPHATASE 72 U/L (46-116); ASPARTATE AMINO TRANSFERASE 21 U/L (15-37); BILIRUBIN,TOTAL 0.7 MG/DL (0.2-1.0)
--- NOTE | 2019-03-15 09:35 | NUR ---
ED Nurse Note: Called [facility] unit for pt transfer. RN not assigned to pt. Will call back for report shortly.
--- NOTE | 2019-03-15 09:51 | NUR ---
ED Nurse Note: Gave telephone report to BRANDEE Stone. Admission packet pending.
--- NOTE | 2019-03-15 10:11 | NUR ---
ED Nurse Note: Pt trasnferred up to medsurg unit. No acute distress noted. Left ER w/ all belongings.
--- NOTE | 2019-03-15 10:20 | NUR ---
NURSE NOTES: Received patient from ER,patient is alert and oriented X4,respiration unlabored,02 0n at 2L N/C.patient has personal belongings,patient has wallet with credit card and money,patient agree to have wallet placed in the Safe.Patient states no pain at this time.Call light within reach.
[2019-03-15] MEDS ORDERED: Morphine Sulfate 4mg/ml Inj (IV USE ONLY) IVP PRN (12:00)
--- NOTE | 2019-03-15 13:02 | NUR ---
RADIOLOGY DEPT., PATIENT REFUSED EXAM AT THIS TIME. PATIENT STATES CHEST X-RAY PERFORMED THURSDAY ON ADMISSIONS.WILLIAN
[2019-03-15] MEDS ORDERED: Albuterol 90mcg Inhaler 8gm INH PRN (13:30)
--- NOTE | 2019-03-15 14:15 | NUR ---
NURSE NOTES: Patient to OR via [facility].
[2019-03-15] MEDS ORDERED: Bupivacaine 0.25% Inj 30ml INJ ONE ×2 (14:46→16:04)
[2019-03-15] MEDS ORDERED: NeoSporin Gu Irrig 1ml Amp IRRIG ONE (14:46)
[2019-03-15] MEDS ORDERED: Bacitracin 50000 Units Vial ONE (14:46)
[2019-03-15] MEDS ORDERED: Glycopyrrolate 0.2mg/ml 1ml Vial ONE (15:00)
[2019-03-15] MEDS ORDERED: Sterile Water Irrig 1000ml IRRIG ONE (15:00)
[2019-03-15] MEDS ORDERED: Ketorolac 30mg Inj ONE (15:00)
[2019-03-15] MEDS ORDERED: NS Irrig 1000ml ONE (15:00)
[2019-03-15] MEDS ORDERED: Propofol 200mg/20ml IV ONE (15:00)
[2019-03-15] MEDS ORDERED: fentaNYL 100 mcg/2 mL IV ONE (15:29)
[2019-03-15] MEDS ORDERED: Zemuron 50mg/5ml Inj IV ONE (15:29)
[2019-03-15] MEDS ORDERED: Neostigmine 1mg/ml 10ml Inj ONE (15:29)
--- NOTE | 2019-03-15 15:36 | Pre-Procedure Note/Attestation ---
Pre-Procedure Note/Attestation Complete Prior to Procedure Planned Procedure: right Procedure Narrative: right inguinal herniorrhaphy with application of mesh Indications for Procedure Pre-Operative Diagnosis: incarcerated right inguinal hernia Attestation I attest that I discussed the nature of the procedure; its benefits; risks and complications; and alternatives (and the risks and benefits of such alternatives ), prior to the procedure, with the patient (or the patient's legal traffic workforce representative). I attest that, if there was a reasonable possibility of needing a blood transfusion, the patient (or the patient's legal traffic workforce representative) was given the [facility] standardized written summary, pursuant to the [place] Blood Safety Act ([place] Health and Safety Code # 1645, as amended). I attest that I re-evaluated the patient just prior to the surgery and that there has been no change in the patient's H&P, except as documented below: Cathi Frederick MD Mar 15, 2019 15:36
[2019-03-15] MEDS ORDERED: Hydromorphone 0.5mg/0.5ml inj IVP PRN (16:15)
[2019-03-15] MEDS ORDERED: LR 1000ml 1,000 ML IVLG SCH (16:15)
--- NOTE | 2019-03-15 16:15 | Anethesia Preoperative Eval ---
Anesthesia Pre-op PMH/ROS General Date of Evaluation: Mar 15, 2019 Time of Evaluation: 15:18 Anesthesiologist: Torrie ASA Score: ASA 3 Mallampati Score Class I : Soft palate, uvula, fauces, pillars visible Class II: Soft palate, uvula, fauces visible Class III: Soft palate, base of uvula visible Class IV: Only hard plate visible Mallampati Classification: Class II Surgeon: Otoniel Diagnosis: R injuinal herniar Surgical Procedure: R injuinal hernia repair Anesthesia History: none Social History: smoking - h/o Family History: no anesthesia problems Allergies: Coded Allergies: No Known Allergies (Unverified , 02/10/17) Medications: see eMAR Patient NPO?: Yes NPO Date: Mar 15, 2019 NPO Time: 0800 Past Medical History Cardiovascular: Reports: HTN - mild; Denies: CAD, HI, valve dz, arrhythmia, other Pulmonary: Reports: COPD - no SOB atrest; Denies: asthma, ALVINA, other Gastrointestinal/Genitourinary: Reports: GERD; Denies: CRI, ESRD, other Neurologic/Psychiatric: Denies: dementia, CVA, depression/anxiety, TIA, other Endocrine: Denies: DM, hypothyroidism, steroids, other HEENT: Denies: cataract (L), cataract (R), glaucoma, NATIVE (L), NATIVE (R), other Hematology/Immune: Denies: anemia, DVT, bleeding disorder, other Musculoskeletal/Integumentary: Reports: OA; Denies: RA, DJD, DDD, edema, other PMH Narrative: as above PSxH Narrative: see H&P Anesthesia Pre-op Phys. Exam Physician Exam Last Vital Signs Date Time Temp Pulse Resp B/P (MAP) Pulse Ox O2 Delivery O2 Flow Rate FiO2 03/15/19 14:04 Nasal Cannula 2.0 03/15/19 10:11 98.2 53 21 107/49 99 Constitutional: NAD Neurologic: CN 2-12 intact Cardiovascular: RRR, no M/R/G Respiratory: other - some wheezing bilaterally Gastrointestinal: S/NT/ND Airway Exam Mallampati Score: Class II MO: limited Neck: stiff ROM: limited Teeth: missing Dentures: upper, lower Anesthesia Pre-op A/P Labs Hematology Test 03/15/19 07:15 White Blood Count 8.4 K/UL (4.8-10.8) Red Blood Count 4.73 M/UL (4.70-6.10) Hemoglobin 15.3 G/DL (14.2-18.0) Hematocrit 45.5 % (42.0-52.0) Mean Corpuscular Volume 96 FL (80-99) Mean Corpuscular Hemoglobin 32.2 PG (27.0-31.0) H Mean Corpuscular Hemoglobin Concent 33.5 G/DL (32.0-36.0) Red Cell Distribution Width 13.1 % (11.6-14.8) Platelet Count 166 K/UL (150-450) Mean Platelet Volume 8.9 FL (6.5-10.1) Neutrophils (%) (Auto) 65.9 % (45.0-75.0) Lymphocytes (%) (Auto) 23.8 % (20.0-45.0) Monocytes (%) (Auto) 7.2 % (1.0-10.0) Eosinophils (%) (Auto) 2.3 % (0.0-3.0) Basophils (%) (Auto) 0.9 % (0.0-2.0) Coagulation Test 03/15/19 07:15 Prothrombin Time 10.4 SEC (9.30-11.50) Prothromb Time International Ratio 1.0 (0.9-1.1) Activated Partial Thromboplast Time 27 SEC (23-33) Chemistry Test 03/15/19 07:15 03/15/19 07:30 Sodium Level 139 MMOL/L (136-145) Potassium Level 4.2 MMOL/L (3.5-5.1) Chloride Level 101 MMOL/L (98-107) Carbon Dioxide Level 29 MMOL/L (21-32) Anion Gap 9 mmol/L (5-15) Blood Urea Nitrogen 17 mg/dL (7-18) Creatinine 1.3 MG/DL (0.55-1.30) Estimat Glomerular Filtration Rate mL/min (>60) Glucose Level 128 MG/DL (74-106) H Calcium Level 8.8 MG/DL (8.5-10.1) Total Bilirubin 0.7 MG/DL (0.2-1.0) Aspartate Amino Transf (AST/SGOT) 21 U/L (15-37) Alanine Aminotransferase (ALT/SGPT) 23 U/L (12-78) Alkaline Phosphatase 72 U/L (46-116) Total Protein 7.4 G/DL (6.4-8.2) Albumin 3.7 G/DL (3.4-5.0) Globulin 3.7 g/dL Albumin/Globulin Ratio 1.0 (1.0-2.7) Lactic Acid Level 0.90 mmol/L (0.4-2.0) Risk Assessment & Plan Assessment: ASA 3 Plan: GA with ETT Status Change Before Surgery: No Pre-Antibiotics Drug: Ancef 1gr. Given Within 1 Hr of Incision: Yes Time Given: 15:43 Eduar Brownlee MD Mar 15, 2019 16:15
[2019-03-15] MEDS ORDERED: NS Irrig 1000ml IRRIG ONE (16:26)
--- NOTE | 2019-03-15 16:57 | Brief Operative Note ---
Immediate Post Operative Note Operative Note Pre-op Diagnosis: incarcerated right inguinal hernia Post-op Diagnosis: same as pre-op Findings: consistent w/pre-op dx studies Surgeon: MD Duane Anesthesiology Medical Doctor: none Anesthesiologist: Dr. Brownlee Anesthesia: general Specimen: none Complications: none Condition: stable Fluids: per anesthesialogist Estimated Blood Loss: minimal Drains: none Implant(s) used?: Yes Cathi Frederick MD Mar 15, 2019 16:57
--- NOTE | 2019-03-15 16:59 | Discharge Instructions ---
Discharge Instructions Discharge Instructions Follow up with: my office one week Diet: diabetic calorie control Resume Normal Activity?: Yes Activity: as tolerated For Surgical Patients Clean and Dry: other - will be removed by surgeon May shower: Yes For Congestive Heart Failure Reminder Report to your physician any weight gain of 5 pounds or more in one week. Cathi Frederick MD Mar 15, 2019 16:59
--- NOTE | 2019-03-15 17:10 | Immediate Post-Op Evaluation ---
Immediate Post-Op Evalulation Immediate Post-Op Evalulation Procedure: R injuinal hernia repair Date of Evaluation: Mar 15, 2019 Time of Evaluation: 17:09 IV Fluids: 600 Blood Products: n0ne Estimated Blood Loss: min Urinary Output: none Blood Pressure Systolic: 109 Blood Pressure Diastolic: 52 Pulse Rate: 86 Respiratory Rate: 22 O2 Sat by Pulse Oximetry: 98 Temperature (Fahrenheit): 97.6 Pain Score (1-10): 2 Nausea: No Vomiting: No Complications none Patient Status: reacts, patent, extubated, none Hydration Status: adequate Eduar Bronwlee MD Mar 15, 2019 17:10
--- NOTE | 2019-03-15 17:45 | NUR ---
HAND-OFF: Report given to Razia IRVIN. Addendum: 03/15/19 at 2006 by ROGELIO KELLER RN RN hand off at 1944 to Razia IRVIN
--- NOTE | 2019-03-15 18:28 | NUR ---
NURSE NOTES: Receive patient from recovery,patient is alert and oriented,right groin dressing is clean dry pedal pulse strong.Ice pack to right groin noted .Bp111/68 hr,79,resp 18,temp 97.7,02 sat 0n 2L N/C 92-93% SCDs are on..No complaint of pain at this time.Call light within reach,bed alarm is on.Patient will start on clear liquids.
--- NOTE | 2019-03-15 19:30 | NUR ---
NURSE NOTES: Received a report from BRANDEE Stone. Pt is in stable condition. AAOX4. Able to make needs known. IV site is patent and intact. Dressing on the R inguinal in intact and dry. Bed in lowest position. Bed alarm is on. Call light within reach. Will continue to monitor.
[2019-03-15] MEDS: Wixela 100/50 Inhaler - 60 dose INH SCH (20:43)
--- NOTE | 2019-03-15 20:45 | Consultation ---
DATE OF CONSULTATION: 03/15/2019 PREOPERATIVE CONSULTATION CONSULTING PHYSICIAN: Cathi Frederick M.D. REQUESTING PHYSICIAN: ER physician. REASON FOR CONSULTATION: Irreducible hernia. HISTORY OF PRESENT ILLNESS: This is an 83-year-old male, who presented to emergency room complaining of swelling and irreducible hernia in his right groin. He stated that he has had a right inguinal hernia for over 20 years, but it has always been irreducible except for 2 days ago that the patient presented with incarcerated hernia. But the time that the patient was taken to the operating room, it reduces and he refused the surgery, but this time, it is again irreducible and he is requesting surgery. PAST MEDICAL HISTORY: He denies allergies and cardiac and renal diseases. He has a history of chronic obstructive pulmonary disease, diabetes, and hypertension. PAST SURGICAL HISTORY: None. MEDICATIONS: Please see the medicine reconciliation form. SOCIAL HISTORY: The patient is an 83-year-old male, who is single without any children. He is retired. He claims that he had stopped smoking 10 years ago. Recently, he has stopped drinking too. REVIEW OF SYSTEMS: He has nocturia and shortness of breath. PHYSICAL EXAMINATION: GENERAL: The patient appeared to be a well-developed and well-nourished 83-year-old male, lying on the gurney, complaining of irreducible hernia in the right groin. HEENT: Head is normocephalic and atraumatic. Eyes, pupils are equal, round, and reactive to light. Mouth is clear. He has an upper denture. NECK: There is no palpable thyromegaly or adenopathy. CHEST: Clear to auscultation and percussion. HEART: There is no gallop or murmur. S1 and S2 are within normal limits. ABDOMEN: Soft, flat, and nontender. The bowel sounds are present. There is no palpable organomegaly. GENITAL: He has a normal uncircumcised penis. His testicles are normal for his age. He has an irreducible right inguinal hernia, which extended below the external ring. EXTREMITIES: Within normal limits. ASSESSMENT: Incarcerated right inguinal hernia. PLAN: The patient requires right inguinal herniorrhaphy and release of the incarceration. The risks and benefits have been explained to him. He understood and granted the consent. Cathi Frederick M.D. DR: ROXANNE JOB#: [id number] CC:
--- NOTE | 2019-03-15 21:00 | Operative Note - Dictated ---
DATE OF OPERATION: 03/15/2019 PREOPERATIVE DIAGNOSIS: Incarcerated right inguinal hernia. POSTOPERATIVE DIAGNOSIS: Incarcerated right inguinal hernia. OPERATION: 1. Right inguinal herniorrhaphy with application of mesh. 2. Blockage of the nerves to the right groin for the postoperative pain control. COMPLICATIONS: None. SURGEON: Cathi Frederick M.D. BOILERMAKER PIPE FITTER: None. ANESTHESIA: General with endotracheal tube. ANESTHESIOLOGIST: Eduar Brownlee M.D. INDICATION: This is an 83-year-old male, who presented to emergency room complaining of irreducible lump at the right groin. The patient has had a right inguinal hernia for over 20 years, but he stated that it has always been reducible, but again this morning, it has been irreducible for which he presented to the emergency room. It should be noted that 2 days ago, he had an incarceration of this hernia, but by the time he was taken to the operating room, the hernia reduced and he refused the surgery. Physical examination showed an irreducible right inguinal hernia, which extended to below his external ring. DESCRIPTION OF PROCEDURE: The patient was placed supine on the operating table and after general anesthesia with endotracheal tube, the right groin was properly prepped and draped. A transverse right inguinal incision was given and was carried sharply through the subcutaneous tissue and Julien fascia. The aponeurosis of the external oblique was reached and was opened along the fibers. Exploration of the groin showed a direct inguinal hernia, which was protruding about 5 inches. This hernia was gradually dissected and isolated and then it was inverted with the help of the pursestring suture of #0 silk. After this, further exploration was performed, which failed to show an indirect hernia sac. A piece of Prolene mesh was selected and was tailored to size of the floor of the inguinal canal. This mesh was sutured in place with multiple interrupted suture of 2-0 Vicryl. The spermatic cord was passed through a small slit at the lower part of the mesh. During the dissection and repair, both ilioinguinal and iliohypogastric nerves were identified and preserved. After the application of the mesh, the incision was thoroughly irrigated with antibiotic solution and was infiltrated with 40 mL of Marcaine 0.25%. The nerves to the right groin were blocked with infiltration of 10 mL of Marcaine for the postoperative pain control. After the injection, the aponeurosis of the external oblique was approximated with running suture of 2-0 Vicryl. The subcutaneous tissue was approximated in two layers with 3-0 plain catgut and the skin incision was approximated with running subcuticular suture of 4-0 chromic. The patient tolerated the procedure very well and was transferred to recovery room in stable condition and extubated. The sponge and needle count correct. Estimated blood loss of 10 mL. Condition of the patient at the end of procedure is stable. Cathi Frederick M.D. DR: ROXANNE JOB#: [id number] CC:
[2019-03-15] MEDS: Pantoprazole Inj IVP SCH (21:05)
--- NOTE | 2019-03-15 22:45 | History and Physical Report ---
DATE OF ADMISSION: 03/15/2019 REASON FOR ADMISSION: Incarcerated right inguinal hernia. HISTORY: This is an 83-year-old male who is just admitted from the ER for the above-noted. The patient was discharged against medical advice and now returned. The patient is now admitted for the surgery and underwent a right inguinal hernia repair. The patient is otherwise stable and has been discharged to home. The patient's findings discussed and reviewed with the patient's emergency room physician. The patient has had some associated vomiting. The patient currently is comfortable overall without significant distress. PAST MEDICAL HISTORY: Notable for diabetes, hypertension, chronic obstructive pulmonary disease, and gastroesophageal reflux disease. MEDICATIONS: Reviewed. ALLERGIES: Reviewed. SOCIAL HISTORY: The patient was a smoker, who quit 9 years ago. History of alcohol use, quit two months ago. FAMILY HISTORY: Otherwise negative. REVIEW OF SYSTEMS: Otherwise negative. PHYSICAL EXAMINATION: GENERAL: A well-developed male, otherwise comfortable at present. No significant distress. VITAL SIGNS: Blood pressure 121/75, 96 sat on 3 liters, and pulse 76. The patient is afebrile. Respiratory rate 24. HEENT: Negative. Extraocular movements are grossly intact. NECK: Supple. LUNGS: Fairly clear and symmetric. CARDIAC: S1 and S2. Regular rate and rhythm without murmurs, rubs, or gallops. ABDOMEN: Slightly tender. Some bowel sounds. EXTREMITIES: No cyanosis, clubbing, or edema. NEUROLOGIC: Grossly nonfocal. LABORATORY DATA: Lab data reviewed, otherwise fairly negative. Electrolytes negative. Blood sugar is 228. CBC essentially negative. IMPRESSION: Incarcerated hernia status post repair, diabetes, hypertension, chronic obstructive pulmonary disease, and gastroesophageal reflux disease. RECOMMENDATIONS: Supportive care. The patient is cleared for discharge per Surgery. We will assist with disposition. The patient to follow up with surgery for further care and management and monitor wound for infection and we recommend further as needed. Dereck Pop M.D. DR: LATRICE JOB#: [id number] CC:
[2019-03-16] VITALS: BP 100/60
[2019-03-16 04:00] VITALS: BP 106/60
--- NOTE | 2019-03-16 06:53 | NUR ---
HAND-OFF: Report given to BRANDEE Levine.
--- NOTE | 2019-03-16 07:00 | NUR ---
NURSE NOTES: RN received pt in stable condition awake in bed. No s/s of acute distress or SOB. Surgical incision bandage intact, asymptomatic. Pt reports no pain. Will continue plan of care.
[2019-03-16 08:00] VITALS: BP 117/71
[2019-03-16] MEDS: Wixela 100/50 Inhaler - 60 dose INH SCH (08:31)
[2019-03-16] MEDS: Pantoprazole Inj IVP SCH (08:39)
--- NOTE | 2019-03-16 08:45 | 48 Hour Post Anesthesia Eval ---
Post Anesthesia Evaluation Procedure: R injuinal hernia repair Date of Evaluation: Mar 16, 2019 Time of Evaluation: 06:39 Blood Pressure Systolic: 106 0: 60 Pulse Rate: 64 Respiratory Rate: 20 Temperature (Fahrenheit): 98.2 O2 Sat by Pulse Oximetry: 96 Airway: patent Nausea: No Vomiting: No Pain Intensity: 2 Hydration Status: adequate Cardiopulmonary Status: Stable Mental Status/LOC: patient returned to baseline Follow-up Care/Observations: 0 Post-Anesthesia Complications: 0 Follow-up care needed: N/A Rufino Gonzalez MD Mar 16, 2019 08:45
[2019-03-16] MEDS ORDERED: Lisinopril 10mg tab ORAL SCH (09:00)
[2019-03-16] MEDS ORDERED: Benazepril 10mg tab ORAL SCH (09:00)
--- NOTE | 2019-03-16 09:34 | NUR ---
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
--- NOTE | 2019-03-16 11:30 | General Progress Note ---
Assessment/Plan Assessment: Incarcerated hernia status post repair, diabetes, hypertension, chronic obstructive pulmonary disease, and gastroesophageal reflux disease. PLAN 1. incentive spirometry 2. advance diet per surgery 3. maintain meds 4. Hydration 5. Pain management 6. discharge once stable with outpatient follow up Subjective Allergies: Coded Allergies: Dust (Verified Allergy, Mild, itching, 03/15/19) Uncoded Allergies: preservatives (Allergy, Mild, Itching, 03/15/19) Subjective care noted stable minimal pain awaiting dispo Objective Last 24 Hour Vital Signs Date Time Temp Pulse Resp B/P (MAP) Pulse Ox O2 Delivery O2 Flow Rate FiO2 03/16/19 10:53 Nasal Cannula 2.0 Nasal Cannula 2.0 03/16/19 09:00 Nasal Cannula 2.0 Nasal Cannula 2.0 03/16/19 08:45 64 20 96 03/16/19 08:37 117/71 03/16/19 08:32 82 18 96 Room Air 21 03/16/19 08:32 82 18 96 Room Air 21 03/16/19 08:23 Nasal Cannula 2.0 28 03/16/19 08:23 100 Nasal Cannula 2.0 28 03/16/19 08:00 97.9 70 18 117/71 (86) 99 03/16/19 04:00 98.2 64 20 106/60 (75) 96 03/16/19 00:00 97.4 64 20 100/60 (73) 95 03/15/19 21:00 Nasal Cannula 2.0 Nasal Cannula 2.0 03/15/19 20:59 95 Nasal Cannula 3.0 32 03/15/19 20:59 Nasal Cannula 3.0 32 03/15/19 20:00 97.9 67 20 95/62 (73) 95 03/15/19 20:00 75 20 95 Nasal Cannula 3.0 32 03/15/19 20:00 71 18 95 Nasal Cannula 3.0 32 03/15/19 18:20 97.8 03/15/19 18:13 97.8 74 24 123/73 96 Nasal Cannula 3 03/15/19 18:01 74 24 123/73 96 Nasal Cannula 3 03/15/19 17:49 76 24 121/75 96 Nasal Cannula 3 03/15/19 17:44 73 24 114/82 95 Nasal Cannula 3 03/15/19 17:30 73 24 113/67 95 Room Air 03/15/19 17:14 86 24 116/72 100 Room Air 03/15/19 17:10 86 22 98 03/15/19 17:09 86 24 110/69 100 Simple Mask 8 03/15/19 17:04 98.0 86 24 98/64 100 Simple Mask 8 03/15/19 14:04 Nasal Cannula 2.0 Intake and Output 03/15/19 03/16/19 19:00 07:00 Intake Total 1500 ml Balance 1500 ml IV Total 1500 ml # Voids 1 3 Height (Feet): 5 Height (Inches): 8.00 Weight (Pounds): 159 Objective WDWN NAD clear breath sounds bilaterally without rhonchi or wheeze [id number] without MRG NABS nontender no HSM no CCE nonfocal Dereck Pop MD Mar 16, 2019 11:30
[2019-03-16 12:00] VITALS: BP 106/57
[2019-03-16] MEDS ORDERED: CEPHALEXIN500 MG ORAL (13:22)
[2019-03-16] MEDS ORDERED: TRAMADOL HCL50 MG ORAL (13:24)
[2019-03-16] MEDS ORDERED: COLACE100 MG ORAL (13:27)
--- NOTE | 2019-03-16 14:08 | NUR ---
NURSE NOTES: Pt discharged in stable condition. No acute distress, SOB, afebrile, surgical dressing dry and intact. RN reviewed discharge packet and medications with pt and surgical site care. Pt verbalized understanding. Pt requested hospital records. RN redirected pt to admitting on discharge to request. RN removed IV and arm band. Pt was able to ambulate steadily at discharge and stated he was going to request records prior to departure.
--- NOTE | 2019-03-16 16:07 | NUR ---
*-*INSURANCE *-* ALL CLINICALS AND REVIEW HAVE BEEN FAXED TO: [facility] NCM: GÓMEZ Alvarado P- [phone] F- [phone]....REVIEW & CLINICALS
--- NOTE | 2019-03-17 10:19 | Discharge Summary ---
Discharge Summary Discharge Summary _ DATE OF ADMISSION: 03/15/2019 DATE OF DISCHARGE: 03/16/2019 DISCHARGED BY: Dr. Dereck Pop CONSULTANTS: Dr. Cathi Frederick BRIEF HOSPITAL COURSE: Patient is an 83-year-old male who was admitted from the ER due to incarcerated right inguinal hernia. Patient was admitted for surgery, however, left AGAINST MEDICAL ADVICE. He then presented back to ED. On the day of admission, he underwent Right inguinal herniorrhaphy with application of mesh by Dr. Frederick. He tolerated procedure well. He was transferred to recovery room in stable condition. Condition of the patient at end of procedure was stable. Postoperatively, he was given IV hydration. He was given pain management. He was encouraged use of incentive spirometry. He was placed on SCDs for DVT prophylaxis. Diet was advanced. Ice pack was applied to the surgical site. He was tolerating diet. He was eventually discharged home. FINAL DIAGNOSES: Incarcerated right inguinal hernia, status post repair Diabetes Hypertension COPD GERD DISPOSITION: Patient was discharged home. DISCHARGE MEDICATIONS: Refer to Discharge Medication List. DISCHARGE INSTRUCTIONS: Follow-up with surgeon in a week. I have been assigned to complete a discharge summary on this account, I was not involved with the patient's management. Ny Zhang NP Mar 17, 2019 10:19
--- NOTE | 2019-03-18 13:26 | Cardiology Report ---
APPROVED REPORT EKG Measurement Heart [id number] HI [id number] Sinus bradycardia with marked sinus arrhythmia Left axis deviation Right bundle branch block Abnormal ECG
== END 2019-03-16 14:11 | disposition home or self-care (01) | DRG 352 ==
LOC: EMR 07:09 → 4E 08:45 → EDBEDREQ 09:34 → 4E 10:24
PROC: 0YU50JZ Supplement Right Inguinal Region with Synthetic Substitute, Open Approach (ICD-10-PCS; principal; 2019-03-15 15:30)
DX: K40.30 Unilateral inguinal hernia, with obstruction, without gangrene, not specified as recurrent (principal); E11.9 Type 2 diabetes mellitus without complications; Z87.891 Personal history of nicotine dependence; J44.9 Chronic obstructive pulmonary disease, unspecified; K21.9 Gastro-esophageal reflux disease without esophagitis; I10 Essential (primary) hypertension
CPT/HCPCS: 36415; 80053; 83605; 85025; 85610; 85730; 93005; 94003; 94150; 94640; 94760; 96360; 99285; J2710

== ENCOUNTER 2020-07-26 09:18 | Emergency (ER) | payer MEDICARE ==
[~2020-07-26] VITALS: Ht 175.3 cm; Wt 62.1 kg
[~2020-07-26 09:18] MED LIST changes: +ADVAIR 250-501 EACH INH; +ASPIR-LOW81 MG ORAL; +CEPHALEXIN500 MG ORAL; +LISINOPRIL5 MG ORAL; +SPIRIVA18 MCG INH; +TRAMADOL HCL50 MG ORAL
--- NOTE | 2020-07-26 09:35 | Emergency Room Report ---
History of Present Illness General Chief Complaint: Skin Rash/Abscess Source: Patient Present Illness HPI 84M PMHx DM HTN COPD GERD c/o rash x x2 months. He states that the rash was initially itchy. He was seen at the [facility] who prescribed him prednisone and doxycycline. Patient is currently compliant with those medications. Denies any new changes to his medications aside from the steroid and the antibiotic. Denies recent travel, sick contacts, new soap, detergent, or dietary changes. He states he has no symptoms aside from itching and irritation at his bilateral arms, chest, and bilateral anterior legs. He denies any nausea, chest pain, shortness of breath, sensation of throat closure , hoarse voice, stridor, drooling, fever or other symptoms. The patient's symptoms were gradual onset, severity was moderate, duration since 60 days. Quality: Itchy Past medical history: DM HTN COPD GERD Past surgical history: R inguinal hernia repair Smoking: Denies Alcohol use: Denies Drug use: Denies Review of systems: CONST: No fevers or chills, No night sweats PULMONARY: No productive cough, No shortness of breath CARDIAC: No chest pain, No palpitations GI: No vomiting, No diarrhea , No melena_or_BRBPR : No dysuria, No hematuria, No discharge NEURO: No new_focal_weakness_or_numbness, No confusion, No vision changes 14 point Review of Systems is otherwise negative except per HPI Physical Exam: GENERAL: Awake_alert_ nontoxic, no acute distress Spo2 95% on RA -normal EYES: Extraocular muscles are intact. Conjunctivae clear. Lids without swelling ENT: External nose and ear normal_in_appearance. Oropharynx clear. Head_ atraumatic, Moist_oral_mucosa NECK: No JVD. No meningismus. No thyromegaly. Supple. Trachea midline RESP: Normal respiratory effort. Symmetric rise. No stridor. Clear_to_ auscultation_No_rales_No_wheezes CARDIAC: Regular rate and regular rhytm. No_significant pedal edema. ABDOMEN: Soft. Nondistended. Nontender_No_rebound_or_guarding. MSK: Normal muscle tone, without rigidity. Extremities without asymmetric deformity or swelling. SKIN: chronic erythematous rash to the bilateral UE, chest and LE (all non circumferential). No cellulitis. Negative nikolsky sign. No palpable crepitus. no abscess or induration NEUROLOGIC: Alert, oriented x3. Motor_and_sensation_grossly_intact. No truncal ataxia. Gait_normal Psych: Normal mood and affect, normal judgment and insight - COORDINATION OF CARE Case was discussed with: Patient I reviewed patient's previous medical records. Medical Decision Making/Plan: DDx: dermatitis vs urticaria vs allergy vs folliculitis vs abscess Initial VSS notable for low grade tachycardia. Airway is intact with no stridor, drooling, or increased WOB. No oral, tongue or lip swelling noted. Patient appears to be presenting with mild to moderate allergic reaction/ chronic dermatitis, there is no evidence of angioedema, no oral involvement, no difficulty breathing or nausea vomiting. Patient is nontoxic and well-appearing the patient is tolerating fluids. The findings are minimal and due to nonprogression of symptoms here the patient is safe to discharge home. The patient feels comfortable with plan and will return immediately if symptoms begin to worsen. I offered billn a dose of steroids and Benadryl here in the emergency department and he declined. He is requesting a skin biopsy and to see a deodorizer operator. I have counseled him that we do not have skin biopsy or derm in ER. Patient was discharged with an EpiPen and Benadryl, but he declined them stating that he has prednisone and antibiotics at home. Patient was instructed to avoid all potential allergic stimuli in the future He is stating he will follow up with [facility] for a deodorizer operator "right now". The patient was instructed to avoid potential precipitating factor and to follow up with their regular physician for referral to refrigeration specialist for definitive allergy testing. Pertinent results reviewed with the patient. I educated the patient on the current treatment plan including the risks, benefits, and alternatives. I also discussed the extent and limitations of the current evaluation. The patient expressed understanding and agreement with plan. I recommended PMD follow-up within 1-2 days. Also advised that the patient return to the Emergency Department as soon as possible if they experience any new, persistent, or worsening symptoms. Allergies: Coded Allergies: Dust (Verified Allergy, Mild, itching, 03/15/19) Uncoded Allergies: preservatives (Allergy, Mild, Itching, 03/15/19) COVID-19 Screening Contact w/high risk pt: No Experienced COVID-19 symptoms?: No COVID-19 Testing performed DOPE WEIGH OPERATOR: No Nursing Documentation-PMH Hx Cardiac Problems: No Hx Hypertension: Yes Hx COPD: Yes Hx Diabetes: Yes Hx Cancer: No Hx Gastrointestinal Problems: No Hx Neurological Problems: No Physical Exam Sp02 EP Interpretation: reviewed, normal Medical Decision Making Diagnostic Impression: Primary Impression: Rash and other nonspecific skin eruption Disposition: HOME, SELF-CARE Admit Decision Time: 09:35 Condition: Stable Scripts Diphenhydramine Hcl/Zinc Acet (BENADRYL ITCH STOPPING CRM) 28.3 Gm Cream..g. 28.3 GM TP TID for itching for 30 Days, #30 GM Prov: Kathe Colón D.O. 07/26/20 Prednisone* (PREDNISONE*) 20 Mg Tablet 40 MG ORAL DAILY, #10 TAB Prov: Kathe Colón D.O. 07/26/20 Cephalexin* (KEFLEX*) 500 Mg Tablet 500 MG ORAL BID for 5 Days, #10 CAP Prov: Kathe Colón D.O. 07/26/20 Epinephrine (Epipen 2-Paul) 0.3 Mg/0.3 Ml Auto.injct 0.3 MG IM ONCE for anaphylaxis for 1 Day, #1 EA Prov: Kathe Colón D.O. 07/26/20 Patient Instructions: Rash Additional Instructions: Instructions for patient/belt polisher: Follow up with your physician in 1-2 days to recheck your rash. Follow-up with your doctor sooner if your condition requires a more timely clinical reevaluation. Return to the emergency department immediately if you feel that your condition is worsening or if you have any new or concerning symptoms. Review your discharge instructions and take any prescriptions given as instructed. Kathe Colón D.O. Jul 26, 2020 09:35
--- NOTE | 2020-07-26 09:37 | NUR ---
ED Nurse Note: Patient walked into ED c/o generalized rash on bilateral arms and legs x 1 month. Patient finished round of antibiotics with no relief.
[2020-07-26 09:39] VITALS: BP 132/75
--- NOTE | 2020-07-26 09:39 | NUR ---
ED Nurse Note: ERMD at bedside
[2020-07-26] MEDS ORDERED: EPIPEN 2-P0.3 MG/0.3 IM (09:44)
[2020-07-26] MEDS ORDERED: CEPHALEXIN500 M1 ORAL (09:44)
[2020-07-26] MEDS ORDERED: PREDNISONE20 MG ORAL (09:44)
[2020-07-26] MEDS ORDERED: BENADRYL ITCH28.3 G1 TP (09:44)
[2020-07-26 09:50] VITALS: BP 132/75
--- NOTE | 2020-07-26 09:50 | NUR ---
ER DISCHARGE NOTE: Patient is cleared to be discharged per ERMD, pt is aox4, on room air, with stable vital signs. pt was given dc instructions, pt was able to verbalize understanding, pt id band removed. pt is able to ambulate with steady gait. pt took all belongings.
== END 2020-07-26 09:50 | disposition home or self-care (01) ==
LOC: EMR 09:45
DX: R21 Rash and other nonspecific skin eruption (principal); E11.9 Type 2 diabetes mellitus without complications; I10 Essential (primary) hypertension; J44.9 Chronic obstructive pulmonary disease, unspecified; K21.9 Gastro-esophageal reflux disease without esophagitis; Z91.09 Other allergy status, other than to drugs and biological substances
CPT/HCPCS: 99282

== ENCOUNTER 2020-10-08 02:25 | Emergency (ER) | payer MEDICARE ==
[~2020-10-08] VITALS: Ht 175.3 cm; Wt 59.0 kg
[~2020-10-08 02:25] MED LIST changes: +BENADRYL ITCH28.3 G1 TP; +CEPHALEXIN500 M1 ORAL; +EPIPEN 2-P0.3 MG/0.3 IM
--- NOTE | 2020-10-08 02:30 | NUR ---
ED Nurse Note: Recieved pt SANTOS from home eith c/o mid/lower back pain at 3/10, states was awakened this am with 8/10 pain and has cadiac hx and wants to make sure his heart is ok, also states he felt pauses in his heart rate when pulse felt, pt appears anxious, speaking raidly and talking about his concerns of heart attack, pt immediately gowned, IV line placed and labs jessica, will resume care as ordered, pt declines meds at this time.
--- NOTE | 2020-10-08 02:31 | Emergency Room Report ---
History of Present Illness General Chief Complaint: Back Pain-No Injury Source: Patient, Medical Record Present Illness HPI This is an 85-year-old male with a history of end-stage COPD. He is currently on oxygen at home. He presents with chief complaint of back pain and irregular heartbeat. He said he woke up with an ache to the left by the scapular area. It is more of an annoying pain. He took his pulse and felt that it was skipping beats and little bit irregular.; 1 1. He denies any chest pain. No new shortness of breath. No fever or chills. Denies any cough or congestion. Oxygenation is at baseline. Because of the irregular heartbeat, he came in to be evaluated. Allergies: Coded Allergies: Dust (Verified Allergy, Mild, itching, 03/15/19) Uncoded Allergies: preservatives (Allergy, Mild, Itching, 03/15/19) COVID-19 Screening Contact w/high risk pt: No Experienced COVID-19 symptoms?: No COVID-19 Testing performed COTTON GINNER HELPER: No Patient History Past Medical History: see triage record, old chart reviewed, COPD Past Surgical History: other Pertinent Family History: none Social History: Denies: smoking Immunizations: other Reviewed Nursing Documentation: PMH: Agreed; PSxH: Agreed Nursing Documentation-PMH Hx Cardiac Problems: Yes - HF, Hx Hypertension: Yes Hx COPD: Yes Hx Diabetes: Yes Hx Cancer: No Hx Gastrointestinal Problems: No Hx Neurological Problems: No Review of Systems Eye: Denies: eye pain, blurred vision ENT: Denies: ear pain, nose congestion, throat swelling Respiratory: Denies: cough, shortness of breath Cardiovascular: Denies: chest pain, palpitations Gastrointestinal: Denies: abdominal pain, diarrhea, nausea, vomiting Musculoskeletal: Denies: back pain, joint pain Skin: Denies: rash Neurological: Denies: headache, numbness Endocrine: Denies: increased thirst, increased urine Hematologic/Lymphatic: Denies: easy bruising All Other Systems: negative except mentioned in HPI Physical Exam Vital Signs Date Time Temp Pulse Resp B/P (MAP) Pulse Ox O2 Delivery O2 Flow Rate FiO2 10/08/20 02:19 97.9 98 18 141/75 (97) 93 Nasal Cannula 3.0 Vitals normal Sp02 EP Interpretation: reviewed, normal General Appearance: well appearing, no apparent distress, alert Head: normocephalic, atraumatic Eyes: bilateral eye PERRL, bilateral eye EOMI ENT: hearing grossly normal, normal pharynx Neck: full range of motion, supple, no meningismus Respiratory: chest non-tender, normal breath sounds, decreased breath sounds Cardiovascular #1: regular rate, rhythm, no murmur Gastrointestinal: normal bowel sounds, non tender, no mass, no organomegaly, no bruit, non-distended Musculoskeletal: back normal, normal range of motion, gait/station normal Psychiatric: mood/affect normal Medical Decision Making Diagnostic Impression: Primary Impression: Back pain Qualified Codes: M54.6 - Pain in thoracic spine ER Course Presents with back pain. No evidence of pneumonia, pneumothorax, ACS to name a few. Symptoms atypical for PE. No evidence of arrhythmia here. Will discharge home. EKG Diagnostic Results Troponin ordered: Yes Rate: normal Rhythm: NSR ST Segments: no acute changes Rhythm Strip Diag. Results EP Interpretation: yes Rate: 61 Rhythm: NSR, no PVC's, no ectopy Chest X-Ray Diagnostic Results Chest X-Ray Diagnostic Results : Chest X-Ray Ordered: Yes # of Views/Limited/Complete: 1 View Indication: Shortness of Breath EP Interpretation: Yes Interpretation: no consolidation, no effusion, no pneumothorax, other - COPD Impression: No acute disease Electronically Signed by: Joshua Brady MD Last Vital Signs Date Time Temp Pulse Resp B/P (MAP) Pulse Ox O2 Delivery O2 Flow Rate FiO2 10/08/20 02:19 97.9 98 18 141/75 (97) 93 Nasal Cannula 3.0 Status: improved Disposition: HOME, SELF-CARE Condition: Stable Patient Instructions: Back Pain, Adult Additional Instructions: Follow-up with your doctor in 7 days. Return if symptoms worsen. Joshua Brady MD Oct 08, 2020 02:31
[2020-10-08] MEDS: Ketorolac 30mg Inj IV ONE ×2 (02:56→03:19)
[2020-10-08 03:00] VITALS: BP 139/71
[2020-10-08 03:09] LABS: CALCIUM 8.7 MG/DL (8.5-10.1); CREATININE 1.2 MG/DL (0.55-1.30); POTASSIUM 4.4 MMOL/L (3.5-5.1)
[2020-10-08 03:14] LABS: ALBUMIN 3.9 G/DL (3.4-5.0); ALBUMIN/GLOBULIN RATIO 1.2 (1.0-2.7); BILIRUBIN,TOTAL 0.7 MG/DL (0.2-1.0)
[2020-10-08 03:15] LABS: BASOPHILS % (AUTO) 0.6 % (0.0-2.0); EOSINOPHILS % (AUTO) 5.3 % (0.0-3.0); HEMATOCRIT 43.4 % (42.0-52.0); HEMOGLOBIN 13.9 G/DL (14.2-18.0); LYMPHOCYTES % (AUTO) 21.8 % (20.0-45.0); MEAN CORPUSCULAR VOLUME 104 FL (80-99); MONOCYTES % (AUTO) 6.4 % (1.0-10.0); NEUTROPHILS % (AUTO) 65.9 % (45.0-75.0); PLATELET COUNT 152 K/UL (150-450); RED BLOOD COUNT 4.19 M/UL (4.70-6.10); RED CELL DISTRIBUTION WIDTH 13.4 % (11.6-14.8); WHITE BLOOD COUNT 7.4 K/UL (4.8-10.8)
[2020-10-08 03:45] VITALS: BP 131/64
--- NOTE | 2020-10-08 03:45 | NUR ---
ER DISCHARGE NOTE: Patient is cleared to be discharged per ERMD, pt is aox4, on room air, with stable vital signs. pt was given dc instructions, pt was able to verbalize understanding, pt id band and iv site removed without complications. pt is able to ambulate with steady gait. pt took all belongings.
[2020-10-08 03:55] VITALS: BP 131/64
--- NOTE | 2020-10-08 03:55 | Diagnostic Imaging Report ---
EXAM: XR Chest, 1 View CLINICAL HISTORY: CP TECHNIQUE: Frontal view of the chest. COMPARISON: No relevant prior studies available. FINDINGS/IMPRESSION: Moderate bilateral emphysematous changes, preferentially involving the upper lobes. Mild dependent atelectasis. Atelectasis along the medial aspect of the right lower lung field. No pneumothorax or pleural effusion. Cardiomegaly. Calcified aorta. If follow-up is required, consider two-view chest radiograph.
--- NOTE | 2020-10-09 19:19 | Cardiology Report ---
APPROVED REPORT EKG Measurement Heart [id number] HI [id number] <Conclusion> Sinus rhythm with marked sinus arrhythmia Left axis deviation Right bundle branch block Abnormal ECG
== END 2020-10-08 03:55 | disposition home or self-care (01) ==
LOC: EDBD 02:25 → EMR 02:50
DX: M54.6 Pain in thoracic spine (principal); J44.9 Chronic obstructive pulmonary disease, unspecified; Z99.81 Dependence on supplemental oxygen; I10 Essential (primary) hypertension; E11.9 Type 2 diabetes mellitus without complications
CPT/HCPCS: 36415; 71045; 80053; 84484; 85025; 93005; 99283

== ENCOUNTER 2021-02-04 00:17 | Emergency (ER) | payer MEDICARE ==
[~2021-02-04] VITALS: Ht 170.2 cm; Wt 61.2 kg
--- NOTE | 2021-02-04 00:30 | NUR ---
Pte came to ER via rescue , pte refers he had a loss of vision for 1 min and that was the reason he called 911.
[2021-02-04 01:09] VITALS: BP 140/74
--- NOTE | 2021-02-04 01:31 | Emergency Room Report ---
History of Present Illness General Chief Complaint: Eye Problems Source: Patient Present Illness HPI Patient is a 85-year-old male presents for increased difficulty with vision patient reports having a brief episode where he had increased difficulty with his vision. 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 Allergies: Coded Allergies: Dust (Verified Allergy, Mild, itching, 03/15/19) Uncoded Allergies: preservatives (Allergy, Mild, Itching, 03/15/19) COVID-19 Screening Contact w/high risk pt: No Experienced COVID-19 symptoms?: No COVID-19 Testing performed [employer]: No Nursing Documentation-PM Past Medical History: No History, Except For Hx Cardiac Problems: Yes - HF, Hx Hypertension: Yes Hx COPD: Yes Hx Diabetes: Yes Hx Cancer: No Hx Gastrointestinal Problems: No Hx Neurological Problems: No Physical Exam Vital Signs Date Time Temp Pulse Resp B/P (MAP) Pulse Ox O2 Delivery O2 Flow Rate FiO2 02/04/21 00:18 98.2 88 16 147/74 (98) 95 Nasal Cannula 2.0 Medical Decision Making Diagnostic Impression: Primary Impression: Carotid stenosis Additional Impression: Transient ischemic attack (TIA) ER Course Patient presented for transient eye vision changes. Differential diagnosis include was not limited to transient ischemic attack, hypoperfusion, dehydration. Patient has a benign exam and does not appear to require any imaging or laboratory testing at this time. Patient was offered further work-up including reimaging and he declined. Patient states that transient vision changes had resolved completely. Patient had previously been was advised that he needed to have carotid surgery and states that he will have further work-up performed. Patient is normally on 3 to 4 L of oxygen via compressor. Patient will be discharged home. He was advised to return if any concerns. At the time of discharge patient was ambulatory without assistance. This medical record is generated with [employer] software. There may be some [employer] discrepancies related to use of this software Last Vital Signs Date Time Temp Pulse Resp B/P (MAP) Pulse Ox O2 Delivery O2 Flow Rate FiO2 02/04/21 01:09 98.2 17 140/74 95 Nasal Cannula 2.0 02/04/21 00:18 88 Status: improved Disposition: HOME, SELF-CARE Condition: Stable Referrals: NOT CHOSEN IPA/,REFERRING (PCP) Kaz Hirsch MD Feb 04, 2021 01:31
[2021-02-04 01:54] VITALS: BP 140/88
--- NOTE | 2021-02-04 01:57 | NUR ---
Patient was discharge home as EDP ordered. All vital signs were taken within normal range. Patient . All prescriptions and instructions were given to the patient . Patient verbalized understanding. patient left the hospital in stable condition .
== END 2021-02-04 01:59 | disposition home or self-care (01) ==
LOC: EDBD 00:17 → EDUNIT# 00:17 → EMR 00:54
DX: G45.9 Transient cerebral ischemic attack, unspecified (principal); I65.22 Occlusion and stenosis of left carotid artery; I10 Essential (primary) hypertension; J44.9 Chronic obstructive pulmonary disease, unspecified; E11.9 Type 2 diabetes mellitus without complications
CPT/HCPCS: 99282